=== PATIENT | female | born 1940 | race Caucasian/White ===

== ENCOUNTER → 2017-11-17 | Outpatient (CLI) | payer OTHER ==
[~2017-11-17] MED LIST: ALEN70TA5 PO; ATOR20TA9 PO; BIMA2.5D TP; BISA10SU54 PR; CHOL10002 PO; ENOX30DI3 SQ; ENOX80SY5 SQ; FEXO180T15 PO; FEXO180T72 PO; HYDR-882 PO; HYDR115S2 PO; HYDR25TA6 PO; LATA2.5D3 EACHEYE; LISI40TA PO; MAGN400O7 PO; METF-163 PO; METH750T2 PO; METO-93 PO; OMEP-110 PO; OXYC-302 PO; REGADENOSON 0.4 MG/5 ML SYRINGE ONE; SENN-31 PO; WARF6TAB47 PO
== END | disposition home or self-care (01) ==
LOC: CFH 08:30
PROVIDERS: ATTEND Internal Medicine Cardiovascular Disease
DX: I48.91 Unspecified atrial fibrillation (principal); I51.7 Cardiomegaly; E11.9 Type 2 diabetes mellitus without complications; Z88.0 Allergy status to penicillin
CPT/HCPCS: 78452; 93017; A9502; J2785